=== PATIENT | female | born 1975 | race Caucasian/White ===

== ENCOUNTER 2023-06-03 21:34 | Observation (INO) | payer OTHER, SELFPAY ==
[2023-06-03 21:39] VITALS: BP 165/101; PULSE 82; RESP 22; TEMP 36.2; O2SAT 99
--- NOTE | 2023-06-03 22:00 | DI.CT_ITS ---
Exam(s) CT ABDOMEN PELVIS W EXAM: CT ABDOMEN PELVIS W CLINICAL HISTORY: epigastric pain TECHNIQUE: Imaging Protocol: Axial computed tomography images with coronal and sagittal reformatted images were created and reviewed. CONTRAST MATERIAL: Intravenous: Omnipaque 350 Contrast volume:100 mL Oral: No COMPARISON: No exams were available for comparison FINDINGS: ABDOMEN: Lung Bases: There is dependent atelectasis in the lung bases. Liver: Normal density. No measurable mass. Portal, Superior Mesenteric, and Splenic Veins: Unremarkable. Gallbladder and Biliary Tract: There are gallstones present. There is enhancement and thickening of the wall of the gallbladder. There is pericholecystic fluid. No significant biliary ductal dilatati on is present. Findings are concerning for acute cholecystitis. Pancreas: Normal density, no abnormal calcifications or inflammatory process. Spleen: Normal. Adrenals: No masses seen. Kidneys: Normal size, contour and axis. No radiodense stones or obstructive uropathy. No masses seen. Abdominal Aorta: Abdominal portion non-dilated. Mild atherosclerotic calcification. Bowel: No obstruction or bowel wall thickening. Appendix is unremarkable. Peritoneal Cavity: No ascites, collection or mesenteric inflammatory response. No free air. Lymph Nodes: Within normal limits. Bones: Within normal limits for the patient's age. Soft Tissues: Unremarkable. PELVIS: Bladder: Symmetric distention, no gross wall thickening. Reproductive Organs: There is an IUD in place. It appears however, to lie in the lower uterine segme nt/cervix region. Nonemergent pelvic ultrasound is recommended for further evaluation. Lymph Nodes: Within normal limits. Bones: Within normal limits for the patient's age. IMPRESSION: Findings suspicious for acute cholecystitis with gallbladder wall thickening, pericholecystic fluid a nd cholelithiasis. RADIATION DOSE DELIVERED: Total DLP DATA REPOSITORY: All CT scans at this facility are submitted to the National Radiology Data Registry (NRDR) Dose Index Registry (DIR) with the [employer] (ACR). RADIATION OPTIMIZATION: All CT scans at this facility use at least one of these dose optimization te chniques: automated exposure control; mA and/or kV adjustment per patient size (includes targeted exa ms where dose is matched to clinical indication); or iterative reconstruction.
[2023-06-03 22:08] LABS: Abs Immature Grans 0.02 10^3/uL (0.0-0.06); Absolute Basophil Count 0.04 10^3/uL (0.0-0.2); Absolute Eosinophil Count 0.25 10^3/uL (0.0-0.7); Absolute Lymphocyte Count 3.49 10^3/uL (1.2-3.4); Absolute Monocyte Count 0.74 10^3/uL (0.1-0.8); Absolute Neutrophil Count 2.14 10^3/uL (1.2-6.7); Basophils % 0.6; Eosinophils % 3.7; HCT 44.1 % (36.0-46.0); HGB 14.8 g/dL (11.2-15.7); Immature Grans % 0.3; Lymphocytes % 52.2; MCH 29.1 pg (27.0-33.0); MCHC 33.6 % (32.0-36.0); MCV 87 fL (80-95); MPV 9.5 fL (8.0-11.0); Monocytes % 11.1; Neutrophils % 32.1; Platelet Count 313 10^3/uL (130-400); RBC 5.09 10^6/uL (3.93-5.22); RDW 12.1 % (11.7-14.6); RDW-SD 38.5 fL; WBC 6.68 10^3/uL (4.4-10.8)
[2023-06-03 22:25] LABS: ALT 107 U/L (14-59); AST 97 U/L (15-37); Albumin 4.3 g/dL (3.4-5.0); Alkaline Phosphatase 84 U/L (46-116); Anion Gap 9.7 mmol/L (3-11); BUN 19 mg/dL (7-18); Bilirubin, Total 0.2 mg/dL (0.2-1.0); CO2 27.3 mmol/L (21.0-32.0); CREATININE 0.8 mg/dL (0.55-1.02); Calcium 9.3 mg/dL (8.5-10.1); Chloride 101 mmol/L (98-107); Estimated GFR 91.97 (mL/min/1.73m2); Glucose 97 mg/dL (74-106); Lipase 84 U/L (16-77); Potassium 3.2 mmol/L (3.5-5.1); Sodium 138 mmol/L (136-145); Total Protein 8.7 g/dL (6.4-8.2); Troponin I < 50 ng/L (< or =60)
[2023-06-03] MEDS: Normal Saline Flush 10 ML SYR IVP (22:26)
[2023-06-03] MEDS: Normal Saline - Diluent 50 ML VIAL IJ (22:27)
[2023-06-03] MEDS: Omnipaque 350 MG/ML 100 ML BTL IJ (22:28)
[2023-06-03] MEDS: Famotidine 20 MG/2 ML VIAL IVP (22:44)
[2023-06-03 22:57] LABS: Bilirubin Negative (Negative); Blood Small (Negative); Clarity Clear (Clear); Glucose Negative (Negative); Ketones Negative (Negative); Leukocyte Esterase Negative (Negative); Nitrite Negative (Negative); Specific Gravity <= 1.005 (1.005-1.025); Urobilinogen 0.2 mg/dL (Up to 0.2); pH 5.5 (5-8)
[2023-06-03 23:04] VITALS: BP 126/73; PULSE 68; O2SAT 96
[2023-06-03 23:06] LABS: Bacteria Rare HPF (Negative); C & S Indicated? No; Crystals Negative HPF (Negative); Epithelial Cells Rare HPF (Negative); Mucus Negative (Negative); RBC 0-2 HPF (0-2); WBC 0-2 HPF (0-5)
--- NOTE | 2023-06-03 23:11 | DI.VRAD_ITS ---
PROCEDURE INFORMATION: Exam: CT Abdomen And Pelvis With Contrast Exam date and time: 06/03/2023 10:30 PM Age: 48 years old Clinical indication: Abdominal pain; Patient HX: Epigastric pain TECHNIQUE: Imaging protocol: Computed tomography of the abdomen and pelvis with contrast. Radiation optimization: All CT scans at this facility use at least one of these dose optimization techniques: automated exposure control; mA and/or kV adjustment per patient size (includes targeted exams where dose is matched to clinical indication); or iterative reconstruction. Contrast material: OMNIPAQUE 350; Contrast volume: 100 ml; Contrast route: INTRAVENOUS (IV); COMPARISON: No relevant prior studies available. FINDINGS: Liver: Mild fatty liver. Gallbladder and bile ducts: Gallstone. Gallbladder wall thickening with hyperemia. Pancreas: Normal. No ductal dilation. Spleen: Incidental note made of accessory splenic ossicle. Adrenal glands: Normal. No mass. Kidneys and ureters: Normal. No hydronephrosis. Stomach and bowel: Unremarkable. No obstruction. No mucosal thickening. Appendix: No evidence of appendicitis. Intraperitoneal space: Unremarkable. No free air. No significant fluid collection. Vasculature: Unremarkable. No abdominal aortic aneurysm. Lymph nodes: Unremarkable. No enlarged lymph nodes. Urinary bladder: Unremarkable as visualized. Reproductive: IUD in place. It appears low lying the cervical level and lower uterine segment. Bones/joints: Unremarkable. No acute fracture. Soft tissues: Unremarkable. IMPRESSION: Abnormal gallbladder findings of concern for acute cholecystitis. Dictated and Authenticated by: Christine Mac MD. Ordering:JARRED Kerns MD
--- NOTE | 2023-06-03 23:30 | W.SURGCON ---
Date of service: 06/03/23 Time of Service: 23:30 Assessment and Plan Assessment and plan (1) Abdominal pain: Status: Acute Assessment and plan: 48 yo woman with 3 weeks of abdominal pain. HD stable. No free air or free fluid mentioned. Patient's exam reportedly focal in the epigastrium. Ddx is broad and includes sub-acute/chronic cholecysitis, PUD disease, mild pancreatitis and hepatitis to name a few. The only objective finding that focally points towards a gallbladder issue at this time is a thickened gallbladder wall on imaging. Acute cholecystitis is unlikely with 3 weeks of pain and no leukocytosis or neutrophil shift and no pericholecystic fluid after 3 weeks of whatever process this is. Sounds like she is uncomfortable enough to warrant spending the night and I'll re-assess her in the morning and discuss options with her. In the absence of leukocytosis(predominantly lymphocytic), fever and the 3-week time frame, she does not warrant antibiotics at this time. She is immuno-competent and there is not a certain acute infection that we are treating. Overall plan: Admit for observation Re-assess in the morning History of Present Illness Narrative: Called by ED provider on patient with reportedly 3 weeks of abdominal pain. Worse tonight. CT scan showed wall thickening of the gallbladder and concern for acute cholecystitis. Reportedly no pericholecystic fluid. Patient reportedly otherwise HD stable and afebrile. No leukocytosis (32% neutrophils), ,mild transaminitis, normal bilirubin, normal alk phos, somewhat elevated Lipase. PFSH All Active Problems (Updated 06/03/23 @ 23:35 by Tip Wharton MD) Abdominal pain (Acute) Social History Smoking/Tobacco Use Status: Never Smoking risk assessment performed?: Yes Alcohol Intake: never Drug use: Never Substance use type: does not use Housing: house Do you feel safe at home: Yes Do you feel safe in your relationship?: Yes Exam Narrative Exam Narrative: Physical Exam per ED provider: Patient isn't toxic or in extremis. Very tender in the epigastrium Results Last Vital Signs Temp 97.2 F L 06/03/23 21:39 Pulse 68 06/03/23 23:04 Resp 22 06/03/23 21:39 BP 126/73 06/03/23 23:04 Pulse Ox 96 06/03/23 23:04 Labs 06/03/23 21:47 06/03/23 21:47 Labs: Laboratory Results - last 24 hr 06/03/23 06/03/23 06/03/23 21:47 22:01 22:47 WBC 6.68 RBC 5.09 Hgb 14.8 Hct 44.1 MCV 87 MCH 29.1 MCHC 33.6 RDW 12.1 Plt Count 313 MPV 9.5 Immature Gran % 0.3 Neutrophils % 32.1 Lymphocytes % 52.2 Monocytes % 11.1 Eosinophils % 3.7 Basophils % 0.6 Nucleated RBC % 0.0 Absolute Neutrophils 2.14 Absolute Lymphocytes 3.49 H Absolute Monocytes 0.74 Absolute Eosinophils 0.25 Absolute Basophils 0.04 Sodium 138 Potassium 3.2 L Chloride 101 Carbon Dioxide 27.3 Anion Gap 9.7 BUN 19 H Creatinine 0.8 Est GFR (CKD-EPI 2020) 91.97 Glucose 97 Calcium 9.3 Total Bilirubin 0.2 AST 97 H ALT 107 H Alkaline Phosphatase 84 Troponin I < 50 Total Protein 8.7 H Albumin 4.3 Lipase 84 H Urine Color Cancelled Yellow Urine Clarity Cancelled Clear Urine pH Cancelled 5.5 Ur Specific [place] Cancelled <= 1.005 Urine Protein Cancelled Negative Urine Ketones Cancelled Negative Urine Blood Cancelled Small H Urine Nitrite Cancelled Negative Urine Bilirubin Cancelled Negative Urine Urobilinogen Cancelled 0.2 Ur Leukocyte Esterase Cancelled Negative Urine RBC 0-2 Urine WBC 0-2 Ur Epithelial Cells Rare Urine Crystals Negative Urine Bacteria Rare Urine Mucus Negative Ur Culture Indicated? No Urine Glucose Cancelled Negative
--- NOTE | 2023-06-03 23:40 | ED.GENADUL_ITS ---
Discharge Plan Disposition Condition: Good Discharge Details Chief Complaint: Abd Prob Admit Date/Time: 06/03/23 23:45 Admit Provider: Tip Wharton Attending Provider: Tip Wharton Primary Care Provider: Dagoberto Yoder ED Provider: Saumya Farias Discharge Instructions Activity:: Activity as Tolerated Equipment/Supplies:: No Equipment Needed Diet:: As Tolerated Discharge Orders Discharge Orders: Discharge Order (Routine); Ordered 06/04/23 Ordered By: Tip Wharton Discharge Data Discharge Date/Time-TO BE ENTERED AT DEPARTURE: 06/04/23 00:41 HPI General Date/Time Provider Initiated Documentation: 06/03/23 21:50 . HPI Narrative: This 48-year-old female presents with report of right upper quadrant and epigastric pain intermittently for the past 3 weeks. Pain has been persistent since eating a pork chop and macaroni and cheese this evening. Denies any fever or chills. On arrival she reports that she is in no acute distress, she denies any chest pain. She denies any chance of . She has had intermittent nausea without vomiting. Denies any prior abdominal surgeries. Related Data Home Medications Medication Instructions Recorded Confirmed levothyroxine 50 mcg tablet 50 mcg PO DAILY 06/03/23 06/03/23 (Synthroid) losartan 25 mg tablet 25 mg PO DAILY 06/03/23 06/03/23 Allergies Allergy/AdvReac Type Severity Reaction Status Date / Time shellfish derived Allergy Hives Verified 06/03/23 21:42 General Stated Complaint: Abd Prob ANGELIKA: 3 Course Vital Signs Vital signs: Vital Signs Temperature 36.2 C L 06/03/23 21:39 Pulse 82 06/03/23 21:39 Respiratory Rate 22 06/03/23 21:39 Blood Pressure 165/101 H 06/03/23 21:39 Pulse Oximetry 99 06/03/23 21:39 Temperature 36.2 C L 06/03/23 21:39 Pulse 68 06/03/23 23:04 Respiratory Rate 22 06/03/23 21:39 Respiratory Effort Normal, Non-Labored 06/03/23 21:43 Blood Pressure 126/73 06/03/23 23:04 Blood Pressure Position Sitting 06/03/23 21:39 Pulse Oximetry 96 06/03/23 23:04 Oxygen Delivery Method Room Air 06/03/23 23:04 Oxygen Flow Rate 0 0325/24 23:04 Pain Level 0 06/03/23 23:04 Lab/Test Results Lab/Test Results: Laboratory Tests Range/Units 06/03/23 06/03/23 06/03/23 21:47 22:01 22:47 WBC (4.4-10.8) 10^3/uL 6.68 RBC (3.93-5.22) 10^6/uL 5.09 Hgb (11.2-15.7) g/dL 14.8 Hct (36.0-46.0) % 44.1 MCV (80-95) fL 87 MCH (27.0-33.0) pg 29.1 MCHC (32.0-36.0) % 33.6 RDW (11.7-14.6) % 12.1 Plt Count (130-400) 10^3/uL 313 MPV (8.0-11.0) fL 9.5 Immature Gran % 0.3 Neutrophils % 32.1 Lymphocytes % 52.2 Monocytes % 11.1 Eosinophils % 3.7 Basophils % 0.6 Nucleated RBC % (0.0-0.3) % 0.0 Absolute Neutrophils (1.2-6.7) 10^3/uL 2.14 Absolute Lymphocytes (1.2-3.4) 10^3/uL 3.49 H Absolute Monocytes (0.1-0.8) 10^3/uL 0.74 Absolute Eosinophils (0.0-0.7) 10^3/uL 0.25 Absolute Basophils (0.0-0.2) 10^3/uL 0.04 Sodium (136-145) mmol/L 138 Potassium (3.5-5.1) mmol/L 3.2 L Chloride (98-107) mmol/L 101 Carbon Dioxide (21.0-32.0) mmol/L 27.3 Anion Gap (3-11) mmol/L 9.7 BUN (7-18) mg/dL 19 H Creatinine (0.55-1.02) mg/dL 0.8 Est GFR (CKD-EPI 2020) (mL/min/1.73m2) 91.97 Glucose (74-106) mg/dL 97 Calcium (8.5-10.1) mg/dL 9.3 Total Bilirubin (0.2-1.0) mg/dL 0.2 AST (15-37) U/L 97 H ALT (14-59) U/L 107 H Alkaline Phosphatase (46-116) U/L 84 Troponin I (< or =60) ng/L < 50 Total Protein (6.4-8.2) g/dL 8.7 H Albumin (3.4-5.0) g/dL 4.3 Lipase (16-77) U/L 84 H Urine Color Cancelled Yellow Urine Clarity Cancelled Clear Urine pH Cancelled 5.5 Ur Specific [place] Cancelled <= 1.005 Urine Protein Cancelled Negative Urine Ketones Cancelled Negative Urine Blood Cancelled Small H Urine Nitrite Cancelled Negative Urine Bilirubin Cancelled Negative Urine Urobilinogen Cancelled 0.2 Ur Leukocyte Esterase Cancelled Negative Urine RBC (0-2) HPF 0-2 Urine WBC (0-5) HPF 0-2 Ur Epithelial Cells (Negative) HPF Rare Urine Crystals (Negative) HPF Negative Urine Bacteria (Negative) HPF Rare Urine Mucus (Negative) Negative Ur Culture Indicated? No Urine Glucose Cancelled Negative POC- Test(urine) Negative Medical Decision Making 48-year-old female presenting with epigastric and right upper quadrant pain Exquisitely tender in the epigastrium and right upper quadrant, and acute distress on assessment Leukocytosis with elevated LFTs AST and ALT, lipase mildly elevated At time of reassessment patient is feeling some mild improvement CT scan shows acute cholecystitis, I think patient needs hospitalization, antibiotics, and surgical assessment Case is discussed with Dr. Wade who will admit patient to his service Quality:SDOH Health Related Social Needs: No Data to Display PFSH All Active Problems (Updated 06/04/23 @ 15:29 by Tip Wharton MD) Abdominal pain (Acute) Social History Smoking/Tobacco Use Status: Never Smoking risk assessment performed?: Yes Alcohol Intake: never Drug use: Never Substance use type: does not use Housing: house Do you feel safe at home: Yes Do you feel safe in your relationship?: Yes
[2023-06-04] VITALS (12 sets, daily range): BP systolic 105–156; BP diastolic 41–130; PULSE 56–94; RESP 14–20; TEMP 36.1–37.4; O2SAT 94–98; BMI 33.4
[2023-06-04] MEDS: Lactated Ringers 1,000 ML 125 ML IV ×3 (00:33→08:59)
[2023-06-04] MEDS: Ondansetron 4 MG/2 ML VIAL IVP (01:23)
[2023-06-04] MEDS: Normal Saline Flush 10 ML SYR IVP ×3 (01:24→17:52)
[2023-06-04 06:57] LABS: Abs Immature Grans 0.01 10^3/uL (0.0-0.06); Absolute Basophil Count 0.03 10^3/uL (0.0-0.2); Absolute Eosinophil Count 0.12 10^3/uL (0.0-0.7); Absolute Lymphocyte Count 2.03 10^3/uL (1.2-3.4); Absolute Monocyte Count 0.55 10^3/uL (0.1-0.8); Absolute Neutrophil Count 2.18 10^3/uL (1.2-6.7); Basophils % 0.6; Eosinophils % 2.4; HCT 41.4 % (36.0-46.0); HGB 14.1 g/dL (11.2-15.7); Immature Grans % 0.2; Lymphocytes % 41.3; MCHC 34.1 % (32.0-36.0); MCV 85 fL (80-95); MPV 9.3 fL (8.0-11.0); Monocytes % 11.2; Neutrophils % 44.3; Platelet Count 279 10^3/uL (130-400); RBC 4.86 10^6/uL (3.93-5.22); RDW 12.3 % (11.7-14.6); RDW-SD 37.9 fL; WBC 4.92 10^3/uL (4.4-10.8)
[2023-06-04 07:18] LABS: ALT 93 U/L (14-59); AST 83 U/L (15-37); Albumin 3.6 g/dL (3.4-5.0); Alkaline Phosphatase 69 U/L (46-116); Anion Gap 7.6 mmol/L (3-11); BUN 16 mg/dL (7-18); Bilirubin, Total 0.4 mg/dL (0.2-1.0); CO2 28.4 mmol/L (21.0-32.0); CREATININE 0.8 mg/dL (0.55-1.02); Calcium 8.7 mg/dL (8.5-10.1); Chloride 105 mmol/L (98-107); Estimated GFR 91.97 (mL/min/1.73m2); Glucose 97 mg/dL (74-106); Potassium 3.6 mmol/L (3.5-5.1); Sodium 141 mmol/L (136-145); Total Protein 7.4 g/dL (6.4-8.2)
[2023-06-04] MEDS: ACETAMINOPHEN 1,000 MG/100 ML BTL 400 MG IVPB ×3 (07:51→18:20)
--- NOTE | 2023-06-04 08:39 | PDOC.CMIN ---
Date of service: 06/04/23 Time of Service: 08:39 Care Management Initial Assmt Initial Assessment REASON FOR HOSPITALIZATION:: Abdominal Pain PREVIOUS FUNCTIONAL STATUS/SOCIAL/FAMILY SUPPORTS:: Stephanie lives in [facility] with her Ric. She is self-employed and works part-time as a college and career counselor. Stephanie drives and is fully independent with her ADL's/IADL's at baseline. CURRENT FUNCTIONAL STATUS:: Stephanie was sitting up in bed with Ric at her bedside when CM met with her. She is awake and easily engages in conversation. Stephanie shares that she feels better today then when she first came to the hospital. Per Stephanie, she may need surgery on her gallbladder and is waiting to have an ultrasound. In addition, she notes that her insurance is now [employer] and her PCP is Dr. Dagoberto Yoder from [facility] primary care. She does not have her insurance card with her, but will call with her information after she is discharged. ADVANCE DIRECTIVES:: None on file. Has patient been provided with info about the portal/API?: Yes Did the patient sign up for the portal?: No CODE STATUS:: Full Code INSURANCE COVERAGE / FINANCIAL ISSUES:: [employer] CURRENT HOME/COMMUNITY SERVICES/EQUIPMENT:: None PRIMARY CARE PHYSICIAN:: Dr. Dagoberto Yoder at [facility] primary care. POTENTIAL DISCHARGE NEEDS:: Follow up appointments and discharge plan of care. PATIENT/FAMILY EDUCATION NEEDS:: Review discharge instructions, limitation, medications and plan to follow up with community providers. Discuss ask me three and goals of self care. ANTICIPATED BARRIERS TO DISCHARGE:: None identified at this time. TRANSPORTATION:: Via private vehicle with PLAN:: Surgery is following, pt requires further medical workup. Anticipate, Stephanie will discharge home via private vehicle with Ric when medically cleared for discharge. CM will continue to support patient and ongoing discharge planning considerations. [facility] All Active Problems (Updated 06/03/23 @ 23:35 by Tip Wharton MD) Abdominal pain (Acute) Social History Smoking/Tobacco Use Status: Never Smoking risk assessment performed?: Yes Alcohol Intake: never Drug use: Never Substance use type: does not use Housing: house Do you feel safe at home: Yes Do you feel safe in your relationship?: Yes SDOH(Care Management) Screening Will the Patient Participate in the Screening?: Yes Do you worry about having a steady place to live?: no Problems where you live: no known problems In the past 12 months, have you had to go without electric, gas, oil or water in your home?: no Have you or anyone in your house had to go without enough food to eat?: no Has lack of transportation kept you from medical appointments or from doing things needed for daily living?: no Has anyone in your support network made you feel unsafe for any reason?: no
[2023-06-04 08:43] LABS: Lipase 56 U/L (16-77)
--- NOTE | 2023-06-04 09:11 | W.PM.PROGNOT ---
Date of Service Date of service: 06/04/23 Time of Service: 12:57 Assessment and Plan Assessment and plan (1) Abdominal pain: Status: Acute Assessment and plan: 48-year-old woman who had an acute attack of abdominal and epigastric discomfort last night. She has had prior attacks abdomen soft?limited and resolved. 1 last night has also resolved. She has no residual pain and her abdominal exam is benign. Nonetheless, we did an ultrasound this morning that does show small amount of pericholecystic fluid and a gallstone. Her lab work is essentially normal/normalizing. She did have a mildly elevated lipase though not high enough to diagnose gallstone pancreatitis. Considering the findings on ultrasound, despite that she has no pain anymore, I did recommend proceeding with a gallbladder surgery today to avoid having another gallbladder attack down the road which is what we think this was. She is in agreement. We had a long and detailed discussion about gallbladder purpose/function and the benefits as well as the risks of surgical intervention. We did talk about the low risk of a bile duct injury or bile leak and also the unlikely but possible risk of persistent symptoms afterwards or chronic post?cholecystectomy syndrome. She wishes to proceed considering the objective findings that we have as well as the reality that she has had multiple attacks leading up to last night and does not want to have another 1. Overall plan: Laparoscopic cholecystectomy Subjective Subjective Interval history since last seen: At the bedside this morning the patient has no complaints. Her abdominal pain is gone. She mostly is complaining of heartburn. She describes the symptoms she is having is pain in her back and overall just unbearable discomfort. It wrapped up around both rib cages. Mostly it was in the middle. She does not think any of it was on the right side. Her lipase normalized this morning. Her LFTs are downtrending to near?normal. Her white count is normal. She denies that this has been going on for 3 weeks. Which she admits to is that she has had multiple attacks. This 1 happens to be the worst when she has had but this has happened multiple times over the past few weeks to months. Each time it seems to slowly go away on its own. Because she is not having any pain this morning, we decided to do an ultrasound to decipher whether or not there is any gallbladder inflammation present. The ultrasound showed a small amount of pericholecystic fluid. Interestingly enough the wall is not unusually thickened on ultrasound. Exam Narrative Exam Narrative: General: Nontoxic, comfortable and interactive Neuro: Alert and oriented x 3 Psych: Good mood and affect, good insight and understanding into her condition Chest: Nonlabored breathing Heart: Regular Abdomen: Soft, nondistended and nontender. She does not have a Walden sign. Objective Last Vital Signs Temp 97.5 F L 06/04/23 07:29 Pulse 72 06/04/23 07:29 Resp 18 06/04/23 07:29 BP 140/76 06/04/23 07:29 Pulse Ox 98 06/04/23 07:29 Laboratory Results - last 24 hr 06/03/23 06/03/23 06/03/23 21:47 22:01 22:47 WBC 6.68 RBC 5.09 Hgb 14.8 Hct 44.1 MCV 87 MCH 29.1 MCHC 33.6 RDW 12.1 Plt Count 313 MPV 9.5 Immature Gran % 0.3 Neutrophils % 32.1 Lymphocytes % 52.2 Monocytes % 11.1 Eosinophils % 3.7 Basophils % 0.6 Nucleated RBC % 0.0 Absolute Neutrophils 2.14 Absolute Lymphocytes 3.49 H Absolute Monocytes 0.74 Absolute Eosinophils 0.25 Absolute Basophils 0.04 Sodium 138 Potassium 3.2 L Chloride 101 Carbon Dioxide 27.3 Anion Gap 9.7 BUN 19 H Creatinine 0.8 Est GFR (CKD-EPI 2020) 91.97 Glucose 97 Calcium 9.3 Total Bilirubin 0.2 AST 97 H ALT 107 H Alkaline Phosphatase 84 Troponin I < 50 Total Protein 8.7 H Albumin 4.3 Lipase 84 H Urine Color Cancelled Yellow Urine Clarity Cancelled Clear Urine pH Cancelled 5.5 Ur Specific [place] Cancelled <= 1.005 Urine Protein Cancelled Negative Urine Ketones Cancelled Negative Urine Blood Cancelled Small H Urine Nitrite Cancelled Negative Urine Bilirubin Cancelled Negative Urine Urobilinogen Cancelled 0.2 Ur Leukocyte Esterase Cancelled Negative Urine RBC 0-2 Urine WBC 0-2 Ur Epithelial Cells Rare Urine Crystals Negative Urine Bacteria Rare Urine Mucus Negative Ur Culture Indicated? No Urine Glucose Cancelled Negative 06/04/23 06/04/23 06:30 06:36 WBC 4.92 RBC 4.86 Hgb 14.1 Hct 41.4 MCV 85 MCH 29.0 MCHC 34.1 RDW 12.3 Plt Count 279 MPV 9.3 Immature Gran % 0.2 Neutrophils % 44.3 Lymphocytes % 41.3 Monocytes % 11.2 Eosinophils % 2.4 Basophils % 0.6 Nucleated RBC % 0.0 Absolute Neutrophils 2.18 Absolute Lymphocytes 2.03 Absolute Monocytes 0.55 Absolute Eosinophils 0.12 Absolute Basophils 0.03 Sodium 141 Potassium 3.6 Chloride 105 Carbon Dioxide 28.4 Anion Gap 7.6 BUN 16 Creatinine 0.8 Est GFR (CKD-EPI 2020) 91.97 Glucose 97 Calcium 8.7 Total Bilirubin 0.4 AST 83 H ALT 93 H Alkaline Phosphatase 69 Troponin I Total Protein 7.4 Albumin 3.6 Lipase 56 Urine Color Urine Clarity Urine pH Ur Specific [place] Urine Protein Urine Ketones Urine Blood Urine Nitrite Urine Bilirubin Urine Urobilinogen Ur Leukocyte Esterase Urine RBC Urine WBC Ur Epithelial Cells Urine Crystals Urine Bacteria Urine Mucus Ur Culture Indicated? Urine Glucose Time Spent with Patient Time Spent with Patient: 25-34 minutes Time was spent: preparing to see the patient(eg.review tests), obtaining and/or reviewing separately otained hiistory, indepentently interpreting results, counseling the patient and care coordination
--- NOTE | 2023-06-04 10:30 | DI.US_ITS ---
Exam(s) US ABDOMEN LIMITED EXAM: US ABDOMEN LIMITED CLINICAL HISTORY: assess GB for pericholecystic fluid and wall thck TECHNIQUE: Ultrasound abdomen performed using standard protocol. COMPARISON: CT CT ABDOMEN PELVIS W from 06/03/2023 FINDINGS: PANCREAS: Normal where visualized. LIVER: There is diffuse increased echogenicity of the liver consistent with fatty infiltration. Hepa topetal flow in the Portal Vein. The liver measures in 16.1 cm length. No evidence of a hepatic mass. GALLBLADDER:Gallstones are present. Gallbladder wall measures 3.5 mm in thickness. There is a small amount of pericholecystic fluid. BILIARY SYSTEM: Common bile duct measures < 7 mm. No intrahepatic biliary ductal dilation. WALDEN'S SIGN: Positive. RIGHT KIDNEY: Kidney is normal in size. No evidence of renal calculi. No evidence of hydronephrosis. No renal mass or cyst identified. ASCITES: None seen. IMPRESSION: 1. Cholelithiasis, pericholecystic fluid and positive sonographic Walden sign suspicious for acute ch olecystitis. 2. Hepatic steatosis. DATA REPOSITORY:
[2023-06-04] MEDS: Heparin 5,000 UNITS/ML VIAL 5000 UNITS SC (12:15)
[2023-06-04] MEDS: FAMOTIDINE 20 MG/50 ML BAG 200 MG IVPB (12:56)
--- NOTE | 2023-06-04 12:56 | ANES.PREOP_ITS ---
General Info Date of Service Date Performed: 06/04/23 Height: 5 ft 3 in Weight: 85.6 kg Body Mass Index (BMI): 33.4 Surgical Procedure: Operation Date: 06/04/23 13:25 Proposed Procedure Side Surgeon p Cholecystectomy Laparoscopic Tip Wharton MD Meds Allergies and Home Medications Allergies Allergy/AdvReac Type Severity Reaction Status Date / Time shellfish derived Allergy Hives Verified 06/03/23 21:42 Home Medication Medication Instructions Recorded levothyroxine 50 mcg tablet 50 mcg PO DAILY 06/03/23 (Synthroid) losartan 25 mg tablet 25 mg PO DAILY 06/03/23 Current Visit Medications: Current Medications Generic Name Dose Route Start Last Admin Trade Name Freq PRN Reason Stop Dose Admin Heparin Sodium (Porcine) 5,000 units 06/04/23 06:00 06/04/23 12:15 Heparin 5,000 Units/Ml Vial SC 5,000 units Q8H MARANDA Administration Ringer's Solution 1,000 mls @ 125 mls/hr 06/03/23 23:45 06/04/23 08:59 IV 125 mls/hr INFUSION MARANDA Administration Acetaminophen 1,000 mg in 100 mls @ 400 mls/hr 06/04/23 02:00 06/04/23 07:51 Ofirmev IVPB 400 mls/hr Q6H MARANDA Administration IV Miscellaneous Supplies 1 each 06/03/23 23:45 Iv Access IV DIRECTED MARANDA Morphine Sulfate 2 mg 06/03/23 23:45 Morphine 2 Mg/Ml Syr IVP Q1H PRN PRN Ondansetron HCl 4 mg 06/03/23 23:45 06/04/23 01:23 Ondansetron 4 Mg/2 Ml Vial IVP 4 mg Q4H PRN PRN Administration Sodium Chloride 0 ml 06/03/23 22:26 06/04/23 01:24 Normal Saline Flush 10 Ml Syr IVP 10 ml PRN PRN Administration Sodium Chloride 0 ml 06/03/23 23:45 Normal Saline Flush 10 Ml Syr IVP PRN PRN Sodium Chloride 0 ml 06/04/23 08:30 06/04/23 07:52 Normal Saline Flush 10 Ml Syr IVP 10 ml BID MARANDA Administration Sodium Chloride 0 ml 06/03/23 23:45 Normal Saline 10 Ml Vial IJ DIRECTED PRN PFSH Active Problems Active Problems: Problem Status Onset Code Abdominal pain R10.9 Tobacco Smoking/Tobacco Use Status: Never Alcohol Alcohol Intake: never Substance Use Substance use: Never Substance use type: does not use Vital Signs and Lab Results Vital Signs Most Recent Vital Signs in EMR: Most Recent Vital Signs Temp Pulse Resp BP Pulse Ox 36.4 C L 72 18 140/76 98 06/04/23 07:29 06/04/23 07:29 06/04/23 07:29 06/04/23 07:29 06/04/23 07:29 Point of Care Results Point of Care Results: POC- Test(urine) Negative 06/03/23 22:49 Lab Results 06/04/23 06:30 06/04/23 06:30 Blood Type / Crossmatch: 2 No Data to Display Complete Blood Count: 2 White Blood Count 4.92 10^3/uL (4.4-10.8) 06/04/23 06:30 Red Blood Count 4.86 10^6/uL (3.93-5.22) 06/04/23 06:30 Hemoglobin 14.1 g/dL (11.2-15.7) 06/04/23 06:30 Hematocrit 41.4 % (36.0-46.0) 06/04/23 06:30 Platelet Count 279 10^3/uL (130-400) 06/04/23 06:30 Complete Metabolic Panel: 2 Sodium 141 mmol/L (136-145) 06/04/23 06:30 Potassium 3.6 mmol/L (3.5-5.1) 06/04/23 06:30 Chloride 105 mmol/L (98-107) 06/04/23 06:30 Carbon Dioxide 28.4 mmol/L (21.0-32.0) 06/04/23 06:30 BUN 16 mg/dL (7-18) 06/04/23 06:30 Creatinine 0.8 mg/dL (0.55-1.02) 06/04/23 06:30 Est GFR (CKD-EPI 2020) 91.97 (mL/min/1.73m2) 06/04/23 06:30 Calcium 8.7 mg/dL (8.5-10.1) 06/04/23 06:30 Albumin 3.6 g/dL (3.4-5.0) 06/04/23 06:30 Glucose 97 mg/dL (74-106) 06/04/23 06:30 Liver Function Panel: 2 Alanine Aminotransferase (ALT/SGPT) 93 U/L (14-59) H 06/04/23 0 6:30 Aspartate Amino Transf (AST/SGOT) 83 U/L (15-37) H 06/04/23 06: 30 Coagulation Panel: 2 No Data to Display Cardiac Panel: 2 Troponin I < 50 ng/L (< or =60) 06/03/23 Arterial Blood Gas: 2 No Data to Display Venous Blood Gas: 2 No Data to Display Pancreas Panel: 2 Lipase 56 U/L (16-77) 06/04/23 06:36 Thyroid Panel: 2 No Data to Display Infectious Disease: 2 Hepatitis B Surface Antigen Pending 06/04/23 06:30 Hepatitis C Antibody Pending 06/04/23 06:30 Blood Cultures: 2 No Data to Display Toxicology Panel: 2 No Data to Display Panel: 2 No Data to Display Anesthesia Assessment and Plan Anesthesia History Personal History: No History of General Anesthesia Family History: No Family History of Anesthesia Complications Exercise Tolerance Exercise Tolerance: Metabolic Equivalents>4 Pertinent Negatives Pertinent Negatives: No Major Cardiovascular Symptoms or Complaints, No Major Pulmonary Symptoms or Complaints and No History of CVA/TIA Cardiac & Pulmonary Exam Cardiac Exam: Normal S1/S2 Heart Sounds Pulmonary Exam: Clear Bilateral Breath Sounds Cardiac and Pulmonary Comment:: pt reports reflux over last few weeks with intermittent use of tums; pt reports some reflux s/s today. pt also reports cough/cold 1 month ago- discussed risk of irritable airway related to recent URI with ETT and pt verbalized understanding Implantable Cardiac Device Does patient have a Pacemaker or an ICD?: No Airway Exam Known Difficult Airway: No Mallampati Class: 2 Mouth Opening: Normal (> 3cm) Thyromental Distance: Greater than 3 cm Neck Range of Motion: Full ROM Neck Circumference: Normal Teeth Condition: Loose or Chipped (pt reports one cracked molar back left side ) ASA Classification ASA Score: ASA 2 Emergency Case?: No NPO Status NPO Status: NPO Clears >2 hours, Solids >8 hours Status Status: Negative HCG Anesthesia Plan Resuscitation Status: Full Code Anesthesia Technique: General Anesthesia Airway Planned: Endotracheal Tube Monitors Used: Standard Monitors
--- NOTE | 2023-06-04 12:58 | NUR.NOTE ---
Taken to OR for lap choly at 12:40pm with famotidine running and bag of zosyn Nursing Note:
[2023-06-04] MEDS: PIPERACILLIN/TAZO 4.5 GM in Normal Saline 100 ML IVPB (13:16)
[2023-06-04] MEDS: Bupivacaine 0.25% Pres-Free 30 ML VIAL (14:04)
--- NOTE | 2023-06-04 14:10 | GB_PTH ---
PATIENT: Stephanie Peterson LOC: [id number] AGE/SX: 48/F ROOM: RE06/03/[address]: Tip Wharton : 1975 BED: A DIS: 06/04/2023 SPEC #: [id number] RECD: 06/04/23 17:28 STATUS: TEE REErick #: [id number] JACINTA: 06/04/23 14:[address]: Tip Wharton DEPT: Surgical Specimen RECD BY: Saumya Bird ENTERED: 06/04/23 17:28 SP TYPE: GB OTHR DR: Dagoberto Yoder Tissues: 1 - GALLBLADDER Procedures: GROSS AND MICRO LEVEL 3 Comments: [id number]
[2023-06-04] MEDS: fentaNYL 100 MCG/2 ML VIAL IVP ×2 (15:17→15:53)
--- NOTE | 2023-06-04 15:18 | ROE_ITS ---
Date of service: 06/04/23 Time of Service: 15:19 Operative Note Operative Note Refer to Anesthesia Record Procedure Description: Procedures performed: 1. Laparoscopic cholecystectomy Pre-op diagnosis: Acute cholecystitis Postoperative diagnosis: Same Surgeon: Mitchell Wharton Anesthesia: You Technical System Analyst: Adore Indication for procedure: Patient with epigastric/right upper quadrant pain, and imaging consistent with acute cholecystitis FINDINGS: A mildly indurated gallbladder was encountered with some mild pericholecystic fluid around the infundibulum. Normal biliary anatomy. Specimens: 1. Gallbladder Complications: None Blood loss: 5 cc Urine output: Not measured Implants/drains: None Procedure in detail: Patient gave written consent and was in agreement with the indications, the likely benefits as well as the potential risks of surgery. They were taken back to the operating room where anesthesia was administered which was tolerated well. The patient was positioned supine on the operating room table, arms outstretched and we then prepped and draped in sterile fashion. We confirmed DVT prophylaxis as well as antibiotics had been administered. When we were all in agreement with our timeout we started the procedure. Local anesthetic was injected at the umbilicus. A small stab incision was made within the umbilicus and a 5 mm trocar was used to enter the abdominal cavity using Optiview technique. Insufflation was performed which was tolerated well. 3 more trocars were placed under direct visualization in the patient's right upper quadrant as well as the epigastrium. The gallbladder was noted to be mildly distended though it did not appear to be severely inflamed. It was not firm and I was able to grasp it easily and retracted towards the left shoulder. This exposed the relevant anatomy at the base and in the cystic plate. There are some mild cholecystic fluid present in some mild inflammation specifically in the infundibulum area. A combination of blunt and sharp dissection was performed as well as electrocautery dissection. I was able to clear off the entire cystic plate and only 2 structures were seen going into the gallbladder. This was consistent with a critical view of safety and clips were placed across both structures(Cystic duct and cystic artery) and they were divided. The gallbladder was then removed off the gallbladder fossa. This was done with electrocautery. Once this was removed I rechecked the liver bed for any leaking bile or bleeding and everything was hemostatic and no bile was leaking. The gallbladder was removed through the epigastric port. It was passed off the table. I rechecked for hemostasis in the gallbladder bed on the liver as well as along the paracolic gutter and nothing was bleeding. There is no bile anywhere. I closed the 12 mm port site with 0 Vicryl through the fascia. We released pneumoperitoneum and then remove the 5 mm trocars. The skin was closed with running Monocryl and Dermabond was placed on top. The patient tolerated the procedure well. The sponge, instruments and sharps counts were correct x3 at the end of the procedure. The patient was extubated and taken to the PACU in hemodynamically stable condition.
--- NOTE | 2023-06-04 15:25 | W.PM.DS.N ---
Date of service: 06/04/23 Time of Service: 15:26 DS: Diagnosis Discharge Diagnosis (1) Abdominal pain: Status: Acute Asessment and Plan: 48-year-old woman who had acute cholecystitis. Her gallbladder has now been removed. See procedure note for details. Overall plan: Discharge home when tolerating clear liquids Discharge Plan Disposition Patient Disposition: Home Condition: Good Discharge Details Reason For Visit: Abdominal pain Admit Date/Time: 06/03/23 23:45 Admit Provider: Tip Wharton Attending Provider: Tip Wharton Primary Care Provider: Dagoberto Yoder Hospital Course Hospital Course: The patient is a 48-year-old woman who presented to the ER with an episode of epigastric pain. She has had multiple prior attacks of this pain. CT scan showed gallbladder wall thickening but no pericholecystic fluid. She was admitted for observation and in the morning was not having any abdominal pain at all. Her lab work was essentially normal. She then underwent an ultrasound evaluation which showed some pericholecystic fluid and gallstones. She was counseled to undergo laparoscopic cholecystectomy and had this procedure done without any complications. She was then set up for discharge home. Home Meds and New Rx's Prescriptions: No Action levothyroxine [Synthroid] 50 mcg tablet 50 mcg PO DAILY losartan 25 mg tablet 25 mg PO DAILY Discharge Instructions Additional Instructions: Incisions: Keep clean and dry but they do not need to be covered. It is okay to shower but no tub bathing for 1 week. You can peel the glue off after 1 week. Activity: As tolerated. There are no restrictions. Return to work, as tolerated in the next few days. If you need a work note call the surgery office. Diet: Regular diet as tolerated Medications: Resume all of your usual/regular home medications Follow-up: Follow-up is optional. If you are having any issues or concerns call the surgery office immediately. If you want to have a routine follow-up that is perfectly fine and you can call and schedule an. If everything is otherwise going well, you do not need to follow-up. Pain control: Take Tylenol, 1000 mg, every 6 hours on a schedule for the next 3 days. You can use ibuprofen in addition to Tylenol and use the narcotic medication only as necessary for pain preventing you from sleeping. Overall: Symptoms should not be worsening. If you have any difficulty breathing or you have return of symptoms of brought you to the hospital or your pain is otherwise worsening each day and you should call the doctor's office or come into the hospital to be checked out. Activity:: Activity as Tolerated Equipment/Supplies:: No Equipment Needed Diet:: As Tolerated DS: Summary Time Spent with Patient providing and/or coordinating discharge services: Less than 30 minutes Status at Discharge Functional status at discharge: independent ambulation Overall status at discharge: patient is progressing back to baseline Mental Status: mental status grossly normal Speech and Movement: speech and movement normal Mood: congruent mood Affect: normal affect Quality:SDOH Health Related Social Needs: No Data to Display Exam Psych Mental Status: mental status grossly normal Speech and Movement: speech and movement normal Mood: congruent mood Affect: normal affect DS: Data Vitals/I&O Vitals and I&O: Vital Signs Temperature 97.5 F L 06/04/23 07:29 Temperature Source Tympanic 06/04/23 07:29 Pulse 72 06/04/23 07:29 Pulse Rhythm Regular 06/04/23 08:00 Respiratory Rate 18 06/04/23 07:29 Respiratory Effort Normal 06/04/23 08:00 Respiratory Depth Normal 06/04/23 08:00 Respiratory Pattern Normal 06/04/23 08:00 Blood Pressure 140/76 06/04/23 07:29 Blood Pressure Position Sitting 06/03/23 21:39 Pulse Oximetry 98 06/04/23 07:29 Oxygen Delivery Method Room Air 06/04/23 07:29 Oxygen Flow Rate 0 06/04/23 07:29 Pain Level 4 06/04/23 11:42 Comment headache, NPO, surgeon paged d/t unable to treat her pain, also declining SQ heparin until plan is known 06/04/23 11:42 Intake & Output 06/03/23 06/04/23 06/04/23 23:59 11:59 23:59 Intake Total 1064.167 / 1164.167 100 / 1164.167 Output Total 300 / 850 550 / 850 Balance 764.167 / 314.167 -450 / 314.167 Weight 189 lb 188 lb 11.451 oz 188 lb 11.451 oz Intake: IV 1064.167 / 1164.167 100 / 1164.167 Output: Urine 300 / 850 550 / 850 Other: Urine Color Yellow Yellow Urine Appearance Clear Clear Urine Odor None Voiding Methods Toilet Toilet Data Completed and Pending Labs on day of discharge: Labs from last 24 hours 06/04/23 06/04/23 06/03/23 06:36 06:30 22:47 WBC 4.92 RBC 4.86 Hgb 14.1 Hct 41.4 MCV 85 MCH 29.0 MCHC 34.1 RDW 12.3 Plt Count 279 MPV 9.3 Immature Gran % 0.2 Neutrophils % 44.3 Lymphocytes % 41.3 Monocytes % 11.2 Eosinophils % 2.4 Basophils % 0.6 Nucleated RBC % 0.0 Absolute Neutrophils 2.18 Absolute Lymphocytes 2.03 Absolute Monocytes 0.55 Absolute Eosinophils 0.12 Absolute Basophils 0.03 Sodium 141 Potassium 3.6 Chloride 105 Carbon Dioxide 28.4 Anion Gap 7.6 BUN 16 Creatinine 0.8 Est GFR (CKD-EPI 2020) 91.97 Glucose 97 Calcium 8.7 Total Bilirubin 0.4 AST 83 H ALT 93 H Alkaline Phosphatase 69 Troponin I Total Protein 7.4 Albumin 3.6 Lipase 56 Urine Color Yellow Urine Clarity Clear Urine pH 5.5 Ur Specific [place] <= 1.005 Urine Protein Negative Urine Ketones Negative Urine Blood Small H Urine Nitrite Negative Urine Bilirubin Negative Urine Urobilinogen 0.2 Ur Leukocyte Esterase Negative Urine RBC 0-2 Urine WBC 0-2 Ur Epithelial Cells Rare Urine Crystals Negative Urine Bacteria Rare Urine Mucus Negative Ur Culture Indicated? No Urine Glucose Negative Hepatitis A IgM Ab Pending Hep Bs Antigen Pending Hep B Core Total Ab Pending Hepatitis C Antibody Pending 06/03/23 06/03/23 22:01 21:47 WBC 6.68 RBC 5.09 Hgb 14.8 Hct 44.1 MCV 87 MCH 29.1 MCHC 33.6 RDW 12.1 Plt Count 313 MPV 9.5 Immature Gran % 0.3 Neutrophils % 32.1 Lymphocytes % 52.2 Monocytes % 11.1 Eosinophils % 3.7 Basophils % 0.6 Nucleated RBC % 0.0 Absolute Neutrophils 2.14 Absolute Lymphocytes 3.49 H Absolute Monocytes 0.74 Absolute Eosinophils 0.25 Absolute Basophils 0.04 Sodium 138 Potassium 3.2 L Chloride 101 Carbon Dioxide 27.3 Anion Gap 9.7 BUN 19 H Creatinine 0.8 Est GFR (CKD-EPI 2020) 91.97 Glucose 97 Calcium 9.3 Total Bilirubin 0.2 AST 97 H ALT 107 H Alkaline Phosphatase 84 Troponin I < 50 Total Protein 8.7 H Albumin 4.3 Lipase 84 H Urine Color Cancelled Urine Clarity Cancelled Urine pH Cancelled Ur Specific [place] Cancelled Urine Protein Cancelled Urine Ketones Cancelled Urine Blood Cancelled Urine Nitrite Cancelled Urine Bilirubin Cancelled Urine Urobilinogen Cancelled Ur Leukocyte Esterase Cancelled Urine RBC Urine WBC Ur Epithelial Cells Urine Crystals Urine Bacteria Urine Mucus Ur Culture Indicated? Urine Glucose Cancelled Hepatitis A IgM Ab Hep Bs Antigen Hep B Core Total Ab Hepatitis C Antibody PFSH All Active Problems (Updated 06/04/23 @ 15:29 by Tip Wharton MD) Abdominal pain (Acute) Social History Smoking/Tobacco Use Status: Never Smoking risk assessment performed?: Yes Alcohol Intake: never Drug use: Never Substance use type: does not use Housing: house Do you feel safe at home: Yes Do you feel safe in your relationship?: Yes Time Spent with Patient Time Spent with Patient: <45 minutes Time was spent: preparing to see the patient(eg.review tests), indepentently interpreting results, counseling the patient and care coordination
--- NOTE | 2023-06-04 15:28 | W.ANESPOSTOP ---
Postoperative Evaluation Date, Time and Location Date Performed: 06/04/23 Time Performed: 15:29 Patient Location: PACU Vital Signs Most Recent Imported Vital Signs: Most Recent Vital Signs Temp Pulse Resp BP Pulse Ox 36.4 C L 72 18 140/76 98 06/04/23 07:29 06/04/23 07:29 06/04/23 07:29 06/04/23 07:29 06/04/23 07:29 Pain Score Most Recent Pain Score: Most Recent Pain Score Pain Level 4 06/04/23 11:42 Assessment Mental Status: Arousable with meaningful communication Airway and Respiratory Function: Patent airway with normal (patient baseline) respiratory exam Cardiovascular Function: Hemodynamically Stable Hydration Status: Adequately Hydrated Nausea & Vomiting: No Nausea or Vomiting Pain: Pain is Moderate or Severe Postoperative Pain Management: Pain being addressed with medication and Ongoing pain, patient will be managed as an inpatient Peripheral Nerve Block: Patient did not receive a nerve block
[2023-06-04] MEDS: MORPHine 2 MG/ML SYR IVP ×2 (16:55→17:50)
--- NOTE | 2023-06-04 17:06 | CHAPLAIN ---
I visited with Stephanie's , Ric. Stephanie was in surgery having her gallbladder removed. I explained my role to Ric and offered support. I'll try to visit with Stephanie tomorrow.
--- NOTE | 2023-06-04 17:29 | NUR.NOTE ---
Pt c/o sub sternal pain at 6-8/10 and very restless. 2mg morphine IVP helped very little. Pt has been up and walking in room to try to release gas. Surgeon paged to report uncontrolled pain. Nursing Note:
--- NOTE | 2023-06-04 18:00 | NUR.NOTE ---
Surgeon called back after 2nd page, he will not return to the hospital tonight. Pt may stay the night for pain control, but no new orders given for pain control. Nursing Note:
--- NOTE | 2023-06-04 18:02 | NUR.NOTE ---
Pt sipping on mani amanda in attempt to burp and release gas. Nursing Note:
[2023-06-04 20:42] LABS: Hepatitis A Antibody IgM Negative (Negative); Hepatitis B Core Antibody Negative (Negative); Hepatitis B surface Ag Negative (Negative); Hepatitis C Ab w Rflx HCV PCR Negative (Negative)
--- NOTE | 2023-06-12 14:57 | NUR.NOTE ---
Accessed pt chart to reconcile EKG orders with EKG?s in [facility]. Nursing Note:
== END 2023-06-04 19:52 | disposition home or self-care (01) ==
LOC: ER 06-04 00:40 → MS 06-04 00:44
PROVIDERS: Admitting Provider Student in an Organized Health Care Education/Training Program; Emergency Provider Physician Assistant; PCP Family Medicine; Visit Provider Student in an Organized Health Care Education/Training Program
PROC: 0FT44ZZ Resection of Gallbladder, Percutaneous Endoscopic Approach (ICD-10-PCS; CPT 47562; principal; 2023-06-04 13:15)
DX: K80.12 Calculus of gallbladder with acute and chronic cholecystitis without obstruction (principal)
CPT/HCPCS: 47562; 00123; 36415; 80053; 81025; 83690; 86704; 86709; 86803; 87340; 96372; 96374; 96375; 96376; 99285; 74177; 76705; 81003; 81015; 84484; 85025; 88304; G0378; J0131; J0665; J1100; J1644; J1805; J1885; J2001; J2250; J2270; J2405; J2543; J2704; J3010; J3490

== ENCOUNTER 2024-01-20 03:19 | Outpatient (CLI) | payer OTHER, SELFPAY ==
[2024-01-20 07:46] LABS: Anion Gap 8.6 mmol/L (3-11); BUN 12 mg/dL (7-18); CO2 28.4 mmol/L (21.0-32.0); CREATININE 0.8 mg/dL (0.55-1.02); Calcium 9.4 mg/dL (8.5-10.1); Calculated LDL 76 mg/dL (<100); Chloride 104 mmol/L (98-107); Cholesterol 145 mg/dL (<200); Estimated GFR 91.97 (mL/min/1.73m2); Glucose 99 mg/dL (74-106); HDL Cholesterol 47 mg/dL (40-60); Potassium 4.4 mmol/L (3.5-5.1); Sodium 141 mmol/L (136-145); TSH (W/Ref FT4) 3.87 uIU/mL (0.36-3.74); Triglyceride 113 mg/dL (<150)
[2024-01-20 08:05] LABS: FREE T4 0.99 ng/dL (0.76-1.46)
== END 2024-01-20 03:20 | disposition home or self-care (01) ==
PROVIDERS: PCP Nurse Practitioner Family; Visit Provider Nurse Practitioner Family
DX: Z00.00 Encounter for general adult medical examination without abnormal findings (principal); I10 Essential (primary) hypertension; E03.9 Hypothyroidism, unspecified; J45.909 Unspecified asthma, uncomplicated
CPT/HCPCS: 36415; 80048; 80061; 84439; 84443

== ENCOUNTER → 2025-01-09 11:43 | Outpatient (CLI) | payer OTHER, SELFPAY ==
--- NOTE | 2025-01-09 | DI.RAD_ITS ---
Exam(s) XR HEEL RT OS CALCIS EXAM: XR HEEL RT OS CALCIS CLINICAL HISTORY: pain of right heel icd-10:[id number]. TECHNIQUE: 2D digital imaging was performed. COMPARISON: No exams were available for comparison FINDINGS: Two views: No evidence of fracture of the talus and calcaneus and the tibiotalar and subtalar joints appear unremarkable. There is a moderate size inferior calcaneal spur and there is calcification in the plantar fascia at this level. There is also an enthesophyte on the posterior calcaneus Achilles insertion site. IMPRESSION: Inferior calcaneal spur moderate size plus calcification in the plantar fascia at this level. Other findings as above. DATA REPOSITORY: RADIATION DOSE DELIVERED:
--- NOTE | 2025-01-09 13:05 | DI.VRAD_ITS ---
PROCEDURE INFORMATION: Exam: XR Right Calcaneus Exam date and time: 01/09/2025 12:26 PM Age: 49 years old Clinical indication: Pain; Heel; Right TECHNIQUE: Imaging protocol: Radiologic exam of the right calcaneus. Views: 2 or more views. COMPARISON: No relevant prior studies available. FINDINGS: Bones/joints: Plantar and Achilles heel spurs. Boehler's angle is normal. Subtalar joint is normal. No fracture. Soft tissues: Soft tissue thickening. IMPRESSION: Heel spurs. Dictated and Authenticated by: Matteo العراقي MD. Orderin HUSSAIN POSEY MD
== END ==
LOC: DI 11:45
PROVIDERS: PCP Nurse Practitioner Family; Visit Provider Nurse Practitioner Family
DX: M79.671 Pain in right foot (principal); M77.31 Calcaneal spur, right foot
CPT/HCPCS: 73650